=== PATIENT | male | born 1940 | race Caucasian/White ===

== ENCOUNTER 2016-12-31 21:29 | Emergency (ER) | payer MEDICARE, OTHER ==
--- NOTE | 2016-12-31 22:17 | ED ---
Complaint/Male - History of Current Complaint Chief Complaint: EDUrogenitalProblems Time Seen by Provider: 12/31/16 22:13 - Allergies/Home Medications Allergies/Adverse Reactions: Allergies Allergy/AdvReac Type Severity Reaction Status Date / Time No Known Allergies Allergy Verified 08/03/16 12:52 PMH/Surg Hx/FS Hx/Imm Hx Infectious Disease History: Denies: Traveled Outside the [place] in Last 30 Days Physical Exam Vital Signs On Initial Exam: Initial Vitals Temp Pulse Resp BP Pulse Ox 97.1 F 75 20 145/109 100 12/31/16 21:30 12/31/16 21:30 12/31/16 21:30 12/31/16 21:30 12/31/16 21:30 Diagnostics - Vital Signs Vital Signs Temp Pulse Resp BP Pulse Ox 12/31/16 21:30 97.1 F 75 20 145/109 100 - Laboratory Lab Statement: Any lab studies that have been ordered have been reviewed, and results considered in the medical decision making process.
[2016-12-31 23:39] LABS: Urine Bacteria Absent (Absent); Urine Bilirubin Negative (Negative); Urine Glucose Negative (Negative); Urine Nitrite Negative (Negative)
[2017-01-01 00:53] LABS: Hematocrit 40 % (42-52); Hemoglobin 13.8 g/dl (14.0-18.0); Mean Corpuscular HGB Conc 34 g/dl (31-36); Mean Corpuscular Hemoglobin 31 pg (27-31); Mean Corpuscular Volume 92 fL (80-94); Mean Platelet Volume 9 um3 (7.4-10.4); Red Blood Count 4.42 10^6/ul (4.0-5.4); Red Cell Distribution Width 13 % (10.5-15); White Blood Count 14.1 10^3/ul (3.5-10.8)
[2017-01-01 01:08] LABS: BUN/Creatinine Ratio 21.7 (8-20); Calcium 8.6 mg/dL (8.6-10.3); EGFR African American 87.6 (>60); EGFR Non-African American 68.1 (>60); Potassium 4.3 mmol/L (3.5-5.0)
--- NOTE | 2017-01-01 01:17 | ED ---
Chelsey Waterman SooYoung, scribed for Francisco Louise MD on 12/31/16 at 2220 . GI/ HPI - HPI Summary HPI Summary: A 76 y/o M presents to ED with c/o difficulty urinating onset today. Pt states his last nml urination was around 1400. Later in the day around 1800, pt experienced frequency but was unable to pass urine. Associated sx: intermittent pain in penis. He says he's had similar sx when he had a kidney stone 30 years ago. PCP is Dr. Butler. - History of Current Complaint Chief Complaint: EDUrogenitalProblems Time Seen by Provider: 12/31/16 22:13 Stated Complaint: UNABLE TO URINATE Hx Obtained From: Patient Onset/Duration: Started Hours Ago, Still Present Timing: Constant Severity: Moderate Current Severity: Severe Pain Intensity: 8 - out of 10 Additional Locations for Males: Penis - Allergy/Home Medications Allergies/Adverse Reactions: Allergies Allergy/AdvReac Type Severity Reaction Status Date / Time No Known Allergies Allergy Verified 08/03/16 12:52 Home Medications: Home Medications Prednisone 10 mg PO DAILY 12/31/16 [History Confirmed 12/31/16] PMH/Surg Hx/FS Hx/Imm Hx Previously Healthy: No GI History: Reports: Hx Gastroesophageal Reflux Disease Opthamlomology History: Denies: Hx Legally Blind Infectious Disease History: Denies: Traveled Outside the [place] in Last 30 Days - Social History Occupation: Retired Lives: With Family Review of Systems Positive: frequency, pain - at penis, other - pos: inability to urinate All Other Systems Reviewed And Are Negative: Yes Physical Exam Triage Information Reviewed: Yes Vital Signs On Initial Exam: Initial Vitals Temp Pulse Resp BP Pulse Ox 97.1 F 75 20 145/109 100 12/31/16 21:30 12/31/16 21:30 12/31/16 21:30 12/31/16 21:30 12/31/16 21:30 Vital Signs Reviewed: Yes Appearance: Positive: Well-Appearing, Pain Distress - mild Skin: Positive: Warm Head/Face: Positive: Normal Head/Face Inspection Eyes: Positive: VIPIN ENT: Positive: Hearing grossly normal Neck: Positive: Supple Respiratory/Lung Sounds: Positive: Clear to Auscultation, Breath Sounds Present Abdomen Description: Positive: Nontender, Soft, Other: - distended bladder Bowel Sounds: Positive: Present Musculoskeletal: Positive: Strength/ROM Intact Neurological: Positive: Alert, Oriented to Person Place, Time, Normal Gait Diagnostics - Vital Signs Vital Signs Temp Pulse Resp BP Pulse Ox 12/31/16 21:30 97.1 F 75 20 145/109 100 - Laboratory Lab Results: Lab Results 12/31/16 01/01/17 01/01/17 Range/Units 23:19 00:45 00:45 WBC 14.1 H (3.5-10.8) 10^3/ul RBC 4.42 (4.0-5.4) 10^6/ul Hgb 13.8 L (14.0-18.0) g/dl Hct 40 L (42-52) % MCV 92 (80-94) fL MCH 31 (27-31) pg MCHC 34 (31-36) g/dl RDW 13 (10.5-15) % Plt Count 179 (150-450) 10^3/ul MPV 9 (7.4-10.4) um3 Neut % (Auto) 80.0 (38-83) % Lymph % (Auto) 9.0 L (25-47) % [place] % (Auto) 9.9 H (1-9) % Eos % (Auto) 0.5 (0-6) % Baso % (Auto) 0.6 (0-2) % Absolute Neuts (auto) 11.3 H (1.5-7.7) 10^3/ul Absolute Lymphs (auto) 1.3 (1.0-4.8) 10^3/ul Absolute Monos (auto) 1.4 H (0-0.8) 10^3/ul Absolute Eos (auto) 0.1 (0-0.6) 10^3/ul Absolute Basos (auto) 0.1 (0-0.2) 10^3/ul Absolute Nucleated RBC 0.01 10^3/ul Nucleated RBC % 0.1 Sodium 138 (133-145) mmol/L Potassium 4.3 (3.5-5.0) mmol/L Chloride 105 (101-111) mmol/L Carbon Dioxide 25 (22-32) mmol/L Anion Gap 8 (2-11) mmol/L BUN 23 (6-24) mg/dL Creatinine 1.06 (0.67-1.17) mg/dL Est GFR ( Amer) 87.6 (>60) Est GFR (Non-Af Amer) 68.1 (>60) BUN/Creatinine Ratio 21.7 H (8-20) Glucose 114 H (70-100) mg/dL Calcium 8.6 (8.6-10.3) mg/dL Urine Color Yellow Urine Appearance Clear Urine pH 5.0 (5-9) Ur Specific [place] 1.010 (1.010-1.030) Urine Protein Negative (Negative) Urine Ketones Negative (Negative) Urine Blood 2+ H (Negative) Urine Nitrate Negative (Negative) Urine Bilirubin Negative (Negative) Urine Urobilinogen Negative (Negative) Ur Leukocyte Esterase Negative (Negative) Urine WBC (Auto) Trace(0-5/hpf) (Absent) Urine RBC (Auto) 2+(6-10/hpf) H (Absent) Urine Bacteria Absent (Absent) Urine Glucose Negative (Negative) Result Diagrams: 01/01/17 00:45 01/01/17 00:45 Lab Statement: Any lab studies that have been ordered have been reviewed, and results considered in the medical decision making process. Re-Evaluation - Re-Evaluation First Eval Change: Improved GIGU Course/Dx - Course Course Of Treatment: Pt is a 76 y/o M presenting with difficulty urinating onset today. Pt states his last nml urination was around 1400. Later in the day around 1800, pt experienced frequency but was unable to pass urine. Associated sx: intermittent pain in penis. He says he's had similar sx when he had a kidney stone 30 years ago. Bladder scan results >576ml, valera cath placed. Lab results show elevated WBCs. UA results show 2+ blood, 2+ RBCs. D/C Home to follow up with his urologist in two days. - Diagnoses Provider Diagnoses: Urinary retention Discharge - Discharge Plan Condition: Improved Disposition: HOME Patient Education Materials: Urinary Retention in Men (ED), Valera Catheter Placement and Care (ED) Referrals: Traci Butler MD [Primary Care Provider] - Additional Instructions: Follow up with your urologist within the next two days. Please return if you experience new or worsening symptoms. The documentation as recorded by the Chelsey katz SooYoung accurately reflects the service I personally performed and the decisions made by , Francisco Louise MD.
[2017-01-01 01:48] VITALS: BP 112/67
== END 2017-01-01 01:47 | disposition home or self-care (01) ==
LOC: ED 21:29
DX: R33.9 Retention of urine, unspecified (principal)
CPT/HCPCS: 36415; 80048; 81003; 81015; 85025; 99282